=== PATIENT | male | born 1950 | race Caucasian/White ===

== ENCOUNTER → 2024-01-16 09:42 | Outpatient (REF) | payer MEDICARE, OTHER, SELFPAY ==
[2024-01-16 10:35] LABS: Hematocrit 37.4 % (39.0-52.0); Hemoglobin 12.9 g/dL (13.0-18.0); Mean Corp Hgb Conc. 34.5 g/dL (33.0-37.0); Mean Corpuscular Hgb 31.5 pg (27.0-31.0); Mean Corpuscular Volume 91.2 fL (80.0-94.0); Mean Platelet Volume 9.7 fL (7.4-10.4); Platelet Count 165 10^3/uL (130-400); Red Cell Dist. Width 13.2 % (11.5-14.5); White Blood Cell Count 7.6 10^3/uL (4.8-10.8)
== END ==
LOC: REG 09:42
PROVIDERS: ATTENDING PHYSICIAN Internal Medicine Cardiovascular Disease; FAMILY PHYSICIAN Family Medicine
DX: I25.118 Atherosclerotic heart disease of native coronary artery with other forms of angina pectoris (principal)
CPT/HCPCS: 36415; 85027

== ENCOUNTER → 2024-02-26 07:51 | Outpatient (REF) | payer MEDICARE, OTHER, SELFPAY ==
[2024-02-26 09:00] LABS: % Basophils 0.4 % (0-2); % Eosinophils 3.4 % (0-6); % Immature Granulocytes 0.2 % (0-0.5); % Lymphocytes 13.2 % (20.5-51.1); % Monocytes 7.8 % (1.7-9.3); Absolute Eosinophils 0.4 10^3/uL (0-0.7); Absolute Lymphocytes 1.4 10^3/uL (1.2-3.4); Absolute Monocytes 0.8 10^3/uL (0.1-0.6); Hematocrit 41.2 % (39.0-52.0); Mean Corpuscular Hgb 31.5 pg (27.0-31.0); Mean Corpuscular Volume 92.6 fL (80.0-94.0); Nucleated Red Blood Cells % 0 % (-); Platelet Count 229 10^3/uL (130-400); Red Blood Cell Count 4.45 10^6/uL (4.70-6.10); Red Cell Dist. Width 12.7 % (11.5-14.5); White Blood Cell Count 10.6 10^3/uL (4.8-10.8)
[2024-02-26 09:53] LABS: ALT (SGPT) 15 U/L (0-50); AST (SGOT) 29 U/L (17-59); Albumin 4.3 g/dl (3.5-5.0); Alkaline Phosphatase 71 U/L (38-126); Blood Urea Nitrogen 9 mg/dl (9-20); Calcium 9.5 mg/dl (8.4-10.2); Carbon Dioxide 30 mmol/L (22-30); Chloride 100 mmol/L (98-107); Glucose 104 mg/dl (70-99); Potassium 4.6 mmol/L (3.5-5.1); Sodium 140 mmol/L (135-145); Total Bilirubin 0.6 mg/dl (0.2-1.3); Total Protein 7.5 g/dl (6.3-8.2); eGFR > 60.00
== END ==
LOC: SDSPAT 07:51
PROVIDERS: ATTENDING PHYSICIAN Internal Medicine Cardiovascular Disease; FAMILY PHYSICIAN Family Medicine; OTHER PHYSICIAN Internal Medicine Cardiovascular Disease
DX: Z01.818 Encounter for other preprocedural examination (principal); I25.118 Atherosclerotic heart disease of native coronary artery with other forms of angina pectoris; Z95.5 Presence of coronary angioplasty implant and graft; I25.2 Old myocardial infarction; Z95.1 Presence of aortocoronary bypass graft
CPT/HCPCS: 36415; 80053; 85025; 93005

== ENCOUNTER 2024-03-05 08:38 | Day surgery (SDC) | payer MEDICARE, OTHER, SELFPAY ==
[2024-02-26 08:25] VITALS: BMI 31.4
--- NOTE | 2024-02-26 10:22 | HPS.HSE ---
Family Physician
<Alcira Franco PA-C - Last Filed: 03/05/24 11:44>
-
Family Physician: Naren Wilson
Chief Complaint
<Alcira Franco PA-C - Last Filed: 03/05/24 11:44>
-
Coronary artery disease. Old myocardial infarction.
History of Present Illness
The patient is a 73 year old male presenting today for coronary artery disease with a previous myocardial infarction history. The patient experienced a lateral myocardial infarction in February 2008 for which he underwent a PCI with diagonal
stent. He, unfortunately, had a second myocardial infarction in March 2014 and required a PCI with RCA stent. Progressive angina led to a CABG x3 in October 2018. Since then, he has had chronic angina. His angina is described as left sided, sharp
chest pain which radiates down his left upper extremity and up to his neck. He experiences shortness of breath with these episodes. The duration of these episodes vary but are noted to relieved with rest. His previous stress test in July 2023
demonstrated no ischemia. Medical therapy for his chronic angina has been often difficult. Amlodipine dosing was decreased due to excessive dizziness while taking 10 mg daily. Underlying sinus bradycardia has limited beta hazel therapy. Given his
use of Tadalafil daily for erectile dysfunction, the use of nitrates is contraindicated. Most recently he was prescribed Ranexa. This was quickly discontinued due to reported excessive drowsiness, lethargy, and hallucinations. It is recommended at
this time that he proceed with a left cardiac catheterization for further management. He denies any current complaints today such as chest pain or shortness of breath at rest, palpitations, nausea, vomiting, diarrhea, lightheadedness, dizziness,
cough, sore throat, or fever.
Medical History
<Alcira Franco PA-C - Last Filed: 03/05/24 11:44>
Past Medical History
Past Medical History: Reports Other
Additional Past Medical History:
1. Coronary artery disease/myocardial infarction, status post PCI with diagonal stent, 02/2008, PCI with RCA stent, 03/2014, and CABG x3 10/2018.
2. Chronic angina.
3. Hypertension.
4. Hyperlipidemia.
5. Sinus bradycardia, asymptomatic.
6. Thoracic aortic ectasia.
7. History of vasovagal syncope.
8. 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
9. Chronic dry cough.
10. Diverticulosis.
11. Hemorrhoids with intermittent rectal bleeding.
12. Anal fissure, status post repair.
13. Vertigo.
14. Arthritis.
15. Erectile dysfunction.
16. PTSD.
17. Insomnia.
18. Hearing impairment bilaterally.
19. Obesity, BMI 31.4.
20. Remote tobacco abuse.
Past Surgical History: Reports Other
Additional Past Surgical History:
1. PCI with diagonal stent.
2. PCI with RCA stent.
3. CABG x3.
4. Cardiac catheterization.
5. Transesophageal echocardiogram.
6. Anal fissure repair.
7. Hemorrhoidectomy.
8. Colonoscopy.
Social History
Tobacco: Former Smoker (Former 1 pack per day cigarette smoker who quit tobacco altogether 25 years ago. )
Alcohol: None
Living: Alone (in a 3 story home. )
Family History
Family History: Not pertinent
Allergies / Home Medications
Allergy/Medication List:
Home medications:
1. Amlodipine 5 mg p.o. daily.
2. Ascorbic acid 2000 mg p.o. daily.
3. Aspirin 81 mg p.o. at bedtime.
4. Ezetimibe 5 mg p.o. at bedtime.
5. Metoprolol Tartrate 50 mg p.o. twice a day.
6. Centrum silver 1 tablet p.o. daily.
7. Rosuvastatin 5 mg p.o. at bedtime.
8. Tadalafil 5 mg p.o. daily.
9. Zinc 60 mg p.o. daily.
Allergies: Atorvastatin. Cephalexin. Iodine. Morphine. NSAIDs. Penicillin. Definity. Ranexa. Nitro. Bananas. Grapefruit. Shellfish.
<Jam Velazquez DO - Last Filed: 03/05/24 10:52>
Past Medical History
Additional Past Medical History:
1. Coronary artery disease/myocardial infarction, status post PCI with diagonal stent, 02/2008, PCI with RCA stent, 03/2014, and CABG x3 (PACHECO to LAD, Sequential SVG to diagonal to PDA), 10/2018.
2. Chronic angina.
3. Hypertension.
4. Hyperlipidemia.
5. Sinus bradycardia, asymptomatic.
6. Thoracic aortic ectasia.
7. History of vasovagal syncope.
8. 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
9. Chronic dry cough.
10. Diverticulosis.
11. Hemorrhoids with intermittent rectal bleeding.
12. Anal fissure, status post repair.
13. Vertigo.
14. Arthritis.
15. Erectile dysfunction.
16. PTSD.
17. Insomnia.
18. Hearing impairment bilaterally.
19. Obesity, BMI 31.4.
20. Remote tobacco abuse.
Additional Past Surgical History:
1. PCI with diagonal stent.
2. PCI with RCA stent.
3. CABG x3 (PACHECO to LAD, sequential SVG to Diagonal to PDA).
4. Cardiac catheterization.
5. Transesophageal echocardiogram.
6. Anal fissure repair.
7. Hemorrhoidectomy.
8. Colonoscopy.
Review of Systems
<Alcira Franco PA-C - Last Filed: 03/05/24 11:44>
-
A 12 point ROS was completed and negative except as noted: Yes
Physical Exam
<Alcira Franco PA-C - Last Filed: 03/05/24 11:44>
Vital Signs
Blood pressure 152/89. Heart rate 63. Respirations 18. Pulse ox 99% on room air.
Height 5 feet, 6 inches. Weight 88.3 kg. BMI 31.4.
Physical Exam
General: Well Developed, Well Nourished and No Apparent Distress
HEENT: NormoCephalic, Moist mucous membranes, Atraumatic, PERRLA and Hearing Impaired
Respiratory: Clear
Cardiac: Bradycardia
GI: Soft, Non Tender, Non Distended and Other (Obese. )
Musculoskeletal: No Edema and Normal Gait & Station
Skin: Warm and Dry
Neuro: AO x 3 and Nonfocal/grossly intact
Laboratory Results
<Alcira Franco PA-C - Last Filed: 03/05/24 11:44>
-
DIAGNOSTIC STUDIES as of 02/26/2024: White blood cell count 10.6. Hemoglobin 14.0. Platelet count 229,000. Sodium 140. Potassium 4.6. BUN 9. Creatinine 0.8. Glucose 104. Calcium 9.5. AST 29. ALT 15. Albumin 4.3.
EKG 02/26/2024: Sinus bradycardia with sinus arrhythmia. First degree AV block.
Nuclear stress test 07/18/2023: Fixed defects involving the mid and apical inferior, apical lateral, and mid to apical anterior mcfarland consistent with infarct. No reversibility to suggest ischemia. The ejection fraction is 55%.
Echocardiogram 08/01/2022: Estimated left ventricular ejection fraction is 55-60%. Mild to moderate mid anteroseptal hypokinesis. Apical septal/apical akinesis. Normal right ventricular size and function. Aortic sclerosis without stenosis. Ascending
aorta dilatation (4.1 cm). Compared to the 07/12/2017 (images were reviewed), there is now new apical septal/apical akinesis and mild to moderate mid anteroseptal hypokinesis.
Impression/Plan
<Alcira Franco PA-C - Last Filed: 03/05/24 11:44>
-
IMPRESSION/PLAN:
1. Coronary artery disease and old myocardial infarction: The patient is in need of a left cardiac catheterization with Dr. Nura Young on 03/11/2024. The benefits and risks of the procedure have been explained to the patient. The patient
understands these risks and wishes to proceed. He is aware to continue his daily baby Aspirin up to and including the morning of his procedure.
[2024-03-05 09:22] VITALS: BP 151/74
== END 2024-03-05 10:02 | disposition home or self-care (01) ==
LOC: CATH 08:38
PROVIDERS: ATTENDING PHYSICIAN Internal Medicine Cardiovascular Disease; FAMILY PHYSICIAN Family Medicine; OTHER PHYSICIAN Internal Medicine Cardiovascular Disease
DX: I25.10 Atherosclerotic heart disease of native coronary artery without angina pectoris (principal); Z53.09 Procedure and treatment not carried out because of other contraindication; Z95.5 Presence of coronary angioplasty implant and graft; I25.2 Old myocardial infarction; Z95.1 Presence of aortocoronary bypass graft; I10 Essential (primary) hypertension; E78.5 Hyperlipidemia, unspecified; Z87.891 Personal history of nicotine dependence; Z79.82 Long term (current) use of aspirin

== ENCOUNTER 2024-03-11 09:45 | Day surgery (SDC) | payer MEDICARE, OTHER, SELFPAY ==
[2024-03-11] VITALS (9 sets, daily range): BP systolic 107–143; BP diastolic 57–86; BMI 31.3
[2024-03-11] MEDS: NSS 264 ML IV (10:21)
--- NOTE | 2024-03-11 12:23 | ITS.CL.CATH ---
[employer] - Catheterization
Cardiac Catheterization
Procedure Report:
CARDIAC CATHETERIZATION REPORT
Date of Procedure: 03/11/2024
Referring: Davonte Smith MD
Indication known CAD with persistent angina despite medical therapy
HEMODYNAMIC DATA
AO: 123/68
LV: 123/14
LEFT VENTRICULOGRAPHY: Anterolateral hypokinesis with EF 48%
CORONARY ANGIOGRAPHY
Dominance: Right
Left Main: Normal
LAD: Long 70% mid LAD stenosis with subtotal occlusion of the LAD distal to the second diagonal branch. The distal LAD fills via a patent left internal mammary graft to the LAD. D2 has a patent proximal stent and fills both antegrade and via the
proximal limb of the sequential vein graft.
Circumflex: There is a large ramus intermedius branch which appears to be totally occluded with bridging collateral flow filling in antegrade. This vessel was not grafted at the time of CABG in 2019. The circumflex proper gives rise to two tiny
obtuse marginal branches before terminating with a medium sized bifurcating OM 3
RCA: The RCA is dominant with severe calcification and severe multisegment disease in the proximal and midportion. The PDA fills antegrade and via the distal limb of the sequential vein graft. There is retrograde flow from this graft through the
PDA to supply the distal posterolateral branches which also fill antegrade via alturas RCA flow
Bypass grafts:
1. The left internal mammary artery graft to the LAD is widely patent with excellent runoff
2. The sequential vein graft to D2 and RPDA is widely patent. There is excellent runoff at the large D2. There is diffuse severe disease distal to the touchdown site in the RPDA; however, there is backfilling to the proximal PDA and into the AV
groove to supply the posterolateral branches as well.
Attempted angioplasty: At the conclusion the diagnostic study we made an attempt to wire the chronic total occlusion of the ramus intermedius branch. Heparin was used for anticoagulation. An EBU 3.5 guide was used. A BMW wire was first advanced
into the vessel but would not cross the extremely angulated area of occlusion. A Fielder XT similarly could not cross the occlusion. With a 0.014 compatible Tiffanie exchange catheter we attempted to get a whisper wire through unsuccessfully. At
this point we aborted further attempts. Final angiography shows no change in the appearance of the vessel following attempted wiring.
Closure Device: 6 Tamazight Angio-Seal RFA
Radiation (mGy): 1270
DAP (cm2.Gy): 93.4
Fluoroscopy time: 13.0 minutes
CONCLUSIONS
1: Anterolateral hypokinesis with EF 48%
2: Severe alturas triple-vessel CAD as described with patent PACHECO-LAD and patent SVG-D2-RPDA (CABG times 12/04/2018). The large ramus intermedius is proximally occluded with bridging collateral flow it is likely the source of his anginal symptoms
3. Unsuccessful attempted wiring of highly angulated ostial/proximal ramus occlusion as described above. Continue medical therapy.
Copy to: Davonte Smith MD, Naren Wilson MD
Nura Young MD, FORMERLY [facility], [facility]
[2024-03-11] MEDS: NSS 1000 IV (13:25)
[2024-03-11 14:09] LABS: ACT-LR - POC > 397 Seconds (116-155)
== END 2024-03-11 16:00 | disposition home or self-care (01) ==
LOC: CATH 09:45
PROVIDERS: ATTENDING PHYSICIAN Internal Medicine Cardiovascular Disease; FAMILY PHYSICIAN Family Medicine
DX: I25.10 Atherosclerotic heart disease of native coronary artery without angina pectoris (principal); Z95.1 Presence of aortocoronary bypass graft; I10 Essential (primary) hypertension; E78.5 Hyperlipidemia, unspecified; R00.1 Bradycardia, unspecified; Z87.891 Personal history of nicotine dependence; Z79.82 Long term (current) use of aspirin
CPT/HCPCS: C1769; C1894; 93459; C1760; Q9967

== ENCOUNTER → 2024-11-18 06:26 | Outpatient (REF) | payer MEDICARE, OTHER, SELFPAY | LOC: RCS 06:26 | PROVIDERS: ATTENDING PHYSICIAN Nurse Practitioner; FAMILY PHYSICIAN Family Medicine | DX: I77.810 Thoracic aortic ectasia (principal) | CPT/HCPCS: 93306 ==